=== PATIENT | male | born 1945 | race Caucasian/White ===

== ENCOUNTER 2017-10-29 20:18 | Observation (INO) | payer MEDICARE, OTHER ==
[~2017-10-29] VITALS: Ht 165.1 cm; Wt 85.0 kg
[~2017-10-29 20:18] MED LIST: CLIN150 PO; LORT5TAB PO
[2017-10-29 20:22] VITALS: BP 155/77; PULSE 78; RESP 18; TEMP 97.5; O2SAT 97
[2017-10-29] MEDS ORDERED: SODIUM CHLORIDE 0.9% FLUSH 10 ML FLUSH IVF PRN (21:15)
[2017-10-29] MEDS ORDERED: ASPIRIN 81 MG CHEW TAB CHEW ONE (21:15)
[2017-10-29] MEDS ORDERED: ASPIRIN 81 MG CHEW TAB PO ONE (21:15)
[2017-10-29 21:27] VITALS: RESP 18
[2017-10-29 21:29] LABS: AUTOMATED NEUTROPHIL # 4.7 TH/MM3 (1.8-7.7); BASOPHIL % 0.5 % (0.0-2.0); EOSINOPHIL # 0.1 TH/MM3 (0-0.4); EOSINOPHIL % 1.4 % (0.0-4.0); HEMATOCRIT 36.5 % (39.0-51.0); HEMOGLOBIN 12.4 GM/DL (13.0-17.0); LYMPH % 37.6 % (9.0-44.0); LYMPHOCYTE # 3.4 TH/MM3 (1.0-4.8); MEAN CELL VOLUME 87.7 FL (80.0-100.0); MEAN CORPUSCULAR HEMOGLOBIN 29.7 PG (27.0-34.0); MEAN CORPUSCULAR HGB CONC 33.9 % (32.0-36.0); MEAN PLATELET VOLUME 8.7 FL (7.0-11.0); MONO % 9.2 % (0.0-8.0); MONOCYTE # 0.8 TH/MM3 (0-0.9); NEUT % 51.3 % (16.0-70.0); PLATELET COUNT 263 TH/MM3 (150-450); RED BLOOD COUNT 4.16 MIL/MM3 (4.50-5.90); RED CELL DISTRIBUTION WIDTH 14.4 % (11.6-17.2); WHITE BLOOD COUNT 9.1 TH/MM3 (4.0-11.0)
[2017-10-29 21:36] LABS: PROTHROMBIN TIME - PATIENT 9.9 SEC (9.8-11.6)
[2017-10-29 21:50] LABS: ALT (GPT) 29 U/L (12-78)
[2017-10-29 22:06] LABS: ALBUMIN 3.6 GM/DL (3.4-5.0); ALKALINE PHOSPHATASE 79 U/L (45-117); AST (GOT) 22 U/L (15-37); BICARBONATE 25.9 MEQ/L (21.0-32.0); BLOOD UREA NITROGEN 25 MG/DL (7-18); CALCIUM 8.8 MG/DL (8.5-10.1); CHLORIDE 104 MEQ/L (98-107); CREATININE 1.16 MG/DL (0.60-1.30); GLOMERULAR FILTRATION RATE 62 ML/MIN (>89); GLUCOSE,RANDOM 110 MG/DL (74-106); SODIUM (NA) 139 MEQ/L (136-145); TOTAL BILIRUBIN ADULT 0.3 MG/DL (0.2-1.0); TROPONIN I LESS THAN 0.02 NG/ML (0.02-0.05)
--- NOTE | 2017-10-29 22:18 | PD ---
HPI Chief Complaint: Chest Pain Time Seen by Provider: 20:27 Travel History International Travel<30 days: No Contact w/Intl Traveler<30days: No Traveled to known affect area: No History of Present Illness HPI Patient is a 71 year old, primarily Cameroonian speaking male, who comes in complaining of chest pain. History obtained through Cameroonian assistant cook. Patient states he has been getting chest pain whenever he exerts himself, especially when he walks upstairs. It improves with rest. He says the pain is on the left side of his chest and lasts about 10-12 minutes. He says he is depressed and is very nervous about his heart. He denies shortness of breath or nausea or vomiting. He says he has not had any problems with his heart in the past. Severity is mild to moderate. [facility] Past Medical History Immunizations Current: Yes Tetanus Vaccination: Unknown Influenza Vaccination: No Social History Alcohol Use: No Tobacco Use: No Substance Use: No Allergies-Medications (Allergen,Severity, Reaction): Coded Allergies: No Known Allergies (Unverified Adverse Reaction, Unknown, 10/29/17) Reported Meds & Prescriptions Reported Meds & Active Scripts Active No Active Prescriptions or Reported Medications Review of Systems Except as stated in HPI: all other systems reviewed are Neg General / Constitutional: No: Fever, Chills HENT: No: Headaches, Lightheadedness Cardiovascular: Positive: Chest Pain or Discomfort Respiratory: No: Shortness of Breath Gastrointestinal: No: Nausea, Vomiting Musculoskeletal: No: Myalgias, Edema Skin: No Rash, No Change in Pigmentation Neurologic: No: Weakness, Dizziness Psychiatric: Positive: Depression Physical Exam Narrative GENERAL: Awake and alert, in no acute distress. SKIN: Focused skin assessment warm/dry. HEAD: Atraumatic. Normocephalic. EYES: Pupils equal and round. No scleral icterus. No injection or drainage. ENT: No nasal bleeding or discharge. Mucous membranes pink and moist. NECK: Trachea midline. No JVD. CARDIOVASCULAR: Regular rate and rhythm. No murmur appreciated. RESPIRATORY: No accessory muscle use. Clear to auscultation. Breath sounds equal bilaterally. GASTROINTESTINAL: Abdomen soft, non-tender, nondistended. MUSCULOSKELETAL: No obvious deformities. No clubbing. No cyanosis. No edema. NEUROLOGICAL: Awake and alert. No obvious cranial nerve deficits. Motor grossly within normal limits. Normal speech. PSYCHIATRIC: Appropriate mood and affect; insight and judgment normal. Data Data Last Documented VS Vital Signs Date Time Temp Pulse Resp B/P (MAP) Pulse Ox O2 Delivery O2 Flow Rate FiO2 10/29/17 21:27 98 Room Air 10/29/17 21:27 18 10/29/17 20:22 97.5 78 Orders Orders Electrocardiogram (10/29/17 20:32) Ckmb (Isoenzyme) Profile (10/29/17 21:11) Complete Blood Count With Diff (10/29/17 21:11) Comprehensive Metabolic Panel (10/29/17 21:11) Prothrombin Time / Inr (Pt) (10/29/17 21:11) Act Partial Throm Time (Ptt) (10/29/17 21:11) Troponin I (10/29/17 21:11) Chest, Single Ap (10/29/17 21:11) Ecg Monitoring (10/29/17 21:11) Bilateral Bp Monitoring (10/29/17 21:11) Iv Access Insert/Monitor (10/29/17 21:11) Oximetry (10/29/17 21:11) Oxygen Administration (10/29/17 21:11) Aspirin Chew (Aspirin Chew) (10/29/17 21:15) Sodium Chloride 0.9% Flush (Ns Flush) (10/29/17 21:15) Aspirin Chew (Aspirin Chew) (10/29/17 21:15) CKMB (10/29/17 21:15) CKMB% (10/29/17 21:15) Activity Bed Rest With Brp (10/29/17 22:51) Vital Signs (Adult) Q4H (10/29/17 22:51) Cardiac Rhythm .As Directed (10/29/17 22:51) Notify Dr: Other .PRN (10/29/17 22:51) Notify Parameters (10/29/17 22:51) Resp Oxygen Nasal Cannula (10/29/17 ) Ckmb (Isoenzyme) Profile (10/30/17 00:15) Ckmb (Isoenzyme) Profile (10/30/17 03:15) Troponin I (10/30/17 00:15) Troponin I (10/30/17 03:15) Electrocardiogram (10/30/17 00:15) Electrocardiogram (10/30/17 03:15) ^ Obtain (10/29/17 22:51) Sodium Chloride 0.9% Flush (Ns Flush) (10/29/17 23:00) Sodium Chloride 0.9% Flush (Ns Flush) (10/30/17 09:00) Television Journalist / Telemetry AMY.[id number] (10/29/17 22:51) Admit Order (Ed Use Only) (10/29/17 ) CKMB (10/30/17 00:15) CKMB% (10/30/17 00:15) CKMB (10/30/17 03:10) CKMB% (10/30/17 03:10) Labs Laboratory Tests Test 10/29/17 21:15 White Blood Count 9.1 TH/MM3 Red Blood Count 4.16 MIL/MM3 Hemoglobin 12.4 GM/DL Hematocrit 36.5 % Mean Corpuscular Volume 87.7 FL Mean Corpuscular Hemoglobin 29.7 PG Mean Corpuscular Hemoglobin Concent 33.9 % Red Cell Distribution Width 14.4 % Platelet Count 263 TH/MM3 Mean Platelet Volume 8.7 FL Neutrophils (%) (Auto) 51.3 % Lymphocytes (%) (Auto) 37.6 % Monocytes (%) (Auto) 9.2 % Eosinophils (%) (Auto) 1.4 % Basophils (%) (Auto) 0.5 % Neutrophils # (Auto) 4.7 TH/MM3 Lymphocytes # (Auto) 3.4 TH/MM3 Monocytes # (Auto) 0.8 TH/MM3 Eosinophils # (Auto) 0.1 TH/MM3 Basophils # (Auto) 0.0 TH/MM3 CBC Comment DIFF FINAL Differential Comment Prothrombin Time 9.9 SEC Prothromb Time International Ratio 1.0 RATIO Activated Partial Thromboplast Time 26.2 SEC Blood Urea Nitrogen 25 MG/DL Creatinine 1.16 MG/DL Random Glucose 110 MG/DL Total Protein 8.0 GM/DL Albumin 3.6 GM/DL Calcium Level 8.8 MG/DL Alkaline Phosphatase 79 U/L Aspartate Amino Transf (AST/SGOT) 22 U/L Alanine Aminotransferase (ALT/SGPT) 29 U/L Total Bilirubin 0.3 MG/DL Sodium Level 139 MEQ/L Potassium Level 3.8 MEQ/L Chloride Level 104 MEQ/L Carbon Dioxide Level 25.9 MEQ/L Anion Gap 9 MEQ/L Estimat Glomerular Filtration Rate 62 ML/MIN Total Creatine Kinase 190 U/L Creatine Kinase MB 1.8 NG/ML Troponin I LESS THAN 0.02 NG/ML MDM Medical Decision Making Medical Screen Exam Complete: Yes Emergency Medical Condition: Yes Medical Record Reviewed: Yes Interpretation(s) ECG shows NSR at a rate of 76, no ST elevation or depression Differential Diagnosis ACS vs NSTEMI vs STEMI Narrative Course Patient is a 71 year old male who comes in complaining of chest pain worse on exertion. Exam shows no acute abnormalities. IV established, labs sent. Patient connected to the youth nutritional monitor. Given Aspirin. Troponin is negative. CXR shows no acute abnormalities. Last 24 hours Impressions Chest X-Ray 10/29/172110 Signed Impressions: CONCLUSION: Minimal basilar atelectasis. No consolidation or significant effusion. Patient will be placed in chest pain center for further management. Diagnosis Primary Impression: Chest pain Qualified Codes: R07.9 - Chest pain, unspecified Admitting Information Admitting Physician Requests: Observation Scripts No Active Prescriptions or Reported Meds Kim Kebede MD Oct 29, 2017 22:18
--- NOTE | 2017-10-29 22:22 | RADRPT ---
EXAM DATE: 10/29/2017 9:58 PM EDT AGE/SEX: 71 years / Male INDICATIONS: Chest pain. CLINICAL DATA: This is the patient's initial encounter. Patient reports that signs and symptoms have been present for 1 day and indicates a pain score of 6/10. MEDICAL/SURGICAL HISTORY: None. None. COMPARISON: No prior exams available for comparison. FINDINGS: A single AP view of the chest demonstrates the lungs to be symmetrically aerated without evidence of mass, infiltrate or effusion. The cardiomediastinal contours are unremarkable. Osseous structures a re intact. CONCLUSION: Minimal basilar atelectasis. No consolidation or significant effusion. Electronically signed by: Mitch Carty MD 10/29/2017 10:20 PM EDT
[2017-10-29] MEDS ORDERED: IOHEXOL 350 MG/ML 50 ML BTL (for Cath Lab) OTHER ONE (22:55)
[2017-10-29] MEDS ORDERED: IOHEXOL 350 MG/ML 100 ML BTL (for Cath Lab) OTHER ONE (22:55)
[2017-10-29] MEDS ORDERED: SODIUM CHLORIDE 0.9% FLUSH 10 ML FLUSH IV FLUSH PRN (23:00)
[2017-10-30 00:33] VITALS: BP 138/72; PULSE 62; RESP 16; TEMP 97.9; O2SAT 97
[2017-10-30 01:04] LABS: TROPONIN I LESS THAN 0.02 NG/ML (0.02-0.05)
[2017-10-30 03:51] VITALS: BP 147/82; PULSE 62; RESP 16; TEMP 97.7; O2SAT 97
[2017-10-30 04:12] LABS: TROPONIN I LESS THAN 0.02 NG/ML (0.02-0.05)
[2017-10-30 07:06] VITALS: PULSE 79
--- NOTE | 2017-10-30 07:56 | HHI.HP ---
HPI Primary Care Physician Ene Snyder MD Chief Complaint Chest pain History of Present Illness 71-year-old male who denies any past medical history presents to ER for further evaluation of exertional chest pain. Onset 6 months. Location substernal. Characterized as pressure. No radiation. Duration varies. Associated symptoms dyspnea. Denies nausea or vomiting. Precipitating factors exertion. Relieving factors rest. States his web services professional is Dr. lopez and he recently chemical stress test 6 months ago reported to be normal. Due to communication barrier unsure reason patient decided to come to ER for further evaluation. Reports increasing fatigue over last couple of months. Currently is chest pain free and denies any further chest pain episodes since arriving to ER. Patient speaks Slovenian well, [place]an his first language. Review of Systems General: Increased fatigue last 2 months. No weakness, fever, chills, or recent illness. CV: As stated above, No further or current chest discomfort since arriving to ER. No known history of CAD or NE. RESP: No recent illness, cough, or wheezing. Exertional dyspnea resolves with rest. GI: No nausea, vomiting, or bowel changes. EXT: No lower leg edema MS: No discomfort or recent injury. NEURO: No dizziness, difficulty with balance, LOC, or motor/sensory deficits PSYCH: No anxiety or depression SKIN: No rashes, no concerning lesions Past Family Social History Allergies: Coded Allergies: No Known Allergies (Unverified Adverse Reaction, Unknown, 10/29/17) Past Medical History Denies any significant past medical history Reported Medications Reported Meds & Active Scripts Active None. States Dr. stein placed him on medication for a little while no longer requires. Does not recall name of medication or why he was prescribed medication. Active Ordered Medications Current Medications Medications (Trade) Dose Ordered Sig/Mary Route Start Time Stop Time Status Last Admin (NS Flush) 2 ml UNSCH PRN IVF 10/29/17 21:15 (NS Flush) 2 ml UNSCH PRN IV FLUSH 10/29/17 23:00 (NS Flush) 2 ml BID IV FLUSH 10/30/17 09:00 Social History No known coronary artery disease, hypertension, hyperlipidemia, or diabetes. Former smoker, quitting "long time ago." . Retired. Past cardiac testing Chemical stress testing less approx [address] Stein office. Reports test completely normal and scheduled for follow appointment on November 20. Physical Exam Vital Signs Vital Signs Date Time Temp Pulse Resp B/P (MAP) Pulse Ox O2 Delivery O2 Flow Rate FiO2 10/30/17 03:51 97.7 62 16 147/82 (103) 97 10/30/17 00:33 97.9 62 16 138/72 (94) 97 10/29/17 23:30 10/29/17 21:27 98 Room Air 10/29/17 21:27 18 10/29/17 20:22 97.5 78 18 155/77 (103) 97 Room Air Physical Exam GENERAL: Alert WN, WD, NAD, anxious, , elderly male HEAD: NC, AT CV: RRR, without murmur, rub, or gallop, no JVD, no S3-S4. RESP: Clear lungs throughout bilateral, no crackles, wheeze, rhonchi, symmetrical chest rise, nonlabored, able to speak in full sentences ABD: Soft, NT, ND, no masses, positive bowel tones EXT: Pulses +2x4, no dependent edema MS: Normal tone x4 extremities, no obvious deformities, full range of motion NEURO: CN II through CN XII grossly intact, motor strength 5/5 PSYCH: A+O x3, pleasant affect, agitated mood, appropriate speech, questionable insight and judgment, angry he can't eat SKIN: Normal turgor, normal texture Laboratory Laboratory Tests Test 10/29/17 21:15 10/30/17 00:15 10/30/17 03:10 White Blood Count 9.1 Red Blood Count 4.16 Hemoglobin 12.4 Hematocrit 36.5 Mean Corpuscular Volume 87.7 Mean Corpuscular Hemoglobin 29.7 Mean Corpuscular Hemoglobin Concent 33.9 Red Cell Distribution Width 14.4 Platelet Count 263 Mean Platelet Volume 8.7 Neutrophils (%) (Auto) 51.3 Lymphocytes (%) (Auto) 37.6 Monocytes (%) (Auto) 9.2 Eosinophils (%) (Auto) 1.4 Basophils (%) (Auto) 0.5 Neutrophils # (Auto) 4.7 Lymphocytes # (Auto) 3.4 Monocytes # (Auto) 0.8 Eosinophils # (Auto) 0.1 Basophils # (Auto) 0.0 CBC Comment DIFF FINAL Differential Comment Prothrombin Time 9.9 Prothromb Time International Ratio 1.0 Activated Partial Thromboplast Time 26.2 Blood Urea Nitrogen 25 Creatinine 1.16 Random Glucose 110 Total Protein 8.0 Albumin 3.6 Calcium Level 8.8 Alkaline Phosphatase 79 Aspartate Amino Transf (AST/SGOT) 22 Alanine Aminotransferase (ALT/SGPT) 29 Total Bilirubin 0.3 Sodium Level 139 Potassium Level 3.8 Chloride Level 104 Carbon Dioxide Level 25.9 Anion Gap 9 Estimat Glomerular Filtration Rate 62 Total Creatine Kinase 190 160 222 Creatine Kinase MB 1.8 1.9 1.9 Troponin I LESS THAN 0.02 LESS THAN 0.02 LESS THAN 0.02 Result Diagram: 10/29/17211410/29/172114 Imaging Last 48 hours Impressions Chest X-Ray 10/29/172110 Signed Impressions: CONCLUSION: Minimal basilar atelectasis. No consolidation or significant effusion. Course EKG NSR, normal axis, no ST-T segment changes Caprini VTE Risk Assessment Caprini VTE Risk Assessment: Mod/High Risk (score >= 2) Caprini Risk Assessment Model Point Value = 1 Point Value = 2 Point Value = 3 Point Value = 5 Age 41-60 Minor surgery BMI > 25 kg/m2 Swollen legs Varicose veins or History of unexplained or recurrent spontaneous Oral contraceptives or hormone replacement Sepsis (< 1 month) Serious lung disease, including pneumonia (< 1 month) Abnormal pulmonary function Acute myocardial infarction Congestive heart failure (< 1 month) History of inflammatory bowel disease Medical patient at bed rest Age 61-74 Arthroscopic surgery Major open surgery (> 45 min) Laparoscopic surgery (> 45 min) Malignancy Confined to bed (> 72 hours) Immobilizing plaster cast Central venous access Age >= 75 History of VTE Family history of VTE Factor V Leiden Prothrombin [id number] Lupus anticoagulant Anticardiolipin antibodies Elevated serum homocysteine Heparin-induced thrombocytopenia Other congenital or acquired thrombophilia Stroke (< 1 month) Elective arthroplasty Hip, pelvis, or leg fracture Acute spinal cord injury (< 1 month) Prophylaxis Regimen Total Risk Factor Score Risk Level Prophylaxis Regimen 0-1 Low Early ambulation 2 Moderate Order ONE of the following: *Sequential Compression Device (SCD) *Heparin 5000 units SQ BID 3-4 Higher Order ONE of the following medications: *Heparin 5000 units SQ TID *Enoxaparin/Lovenox 40 mg SQ daily (WT < 150 kg, CrCl > 30 mL/min) *Enoxaparin/Lovenox 30 mg SQ daily (WT < 150 kg, CrCl > 10-29 mL/min) *Enoxaparin/Lovenox 30 mg SQ BID (WT < 150 kg, CrCl > 30 mL/min) AND/OR *Sequential Compression Device (SCD) 5 or more Highest Order ONE of the following medications: *Heparin 5000 units SQ TID (Preferred with Epidurals) *Enoxaparin/Lovenox 40 mg SQ daily (WT < 150 kg, CrCl > 30 mL/min) *Enoxaparin/Lovenox 30 mg SQ daily (WT < 150 kg, CrCl > 10-29 mL/min) *Enoxaparin/Lovenox 30 mg SQ BID (WT < 150 kg, CrCl > 30 mL/min) AND *Sequential Compression Device (SCD) Assessment and Plan Assessment and Plan Admitted to chest pain center. ACS ruled out with 3 sets of EKGs and cardiac enzymes. Symptoms concerning for unstable angina. Dr. Campa called and spoke with Dr Stein to make aware of patient's admission to [facility] and presenting symptoms. Consult for Dr. Stein placed and MD will assess patient later this today for possible cardiac catheterization. Keep NPO at this time. Discussed plan of care with patient. Patient agitated, demanding a time Dr. Stein will arrive, stating he feels better and prefers to go home. Dr. Campa spoke with patient importance of waiting for Dr. Stein, patient agreeable to wait for Dr. Stein at this time. Discussed plan of care with CARLENE. Latrice Philippe Oct 30, 2017 07:56
[2017-10-30 08:48] VITALS: BP 133/80; PULSE 67; RESP 18; TEMP 97.6; O2SAT 95
[2017-10-30] MEDS ORDERED: SODIUM CHLORIDE 0.9% FLUSH 10 ML FLUSH IV FLUSH SCH (09:00)
[2017-10-30] MEDS ORDERED: MIDAZOLAM HCL 5 MG/5 ML VIAL ONE (13:15)
[2017-10-30] MEDS ORDERED: HEPARIN-NS/PF INJ 1,000 ML ONE (13:15)
[2017-10-30] MEDS ORDERED: NITROGLYCERIN INJ 5 ML ONE (13:27)
--- NOTE | 2017-10-30 14:10 | CATHPROC ---
[employer] HIS Report Study Information Study Number Admission Scheduled Start Study Start [id number] Oct 29 2017 10:54PM 10/30/2017 Oct 30 2017 1:17PM [place] Service Cardiac Catheterization Admit Source Facility Department Emergency department [facility] - Supervisor Border Department Physician and Clinical Staff Initial Lalita Harrison Division Engineer Jeffry Man,CARLENE Other Siva CONCEPCION, Valdemar Recorder Lexx Nails RCIS(BS) Scrub Cele Emerson RCIS TECH2 Procedures Performed Procedure Location (Site) Vessel Name Angiogram LV LV Ventricle Coronary Angiograms LCA Left Coronary Coronary Angiograms RCA Right Coronary L Heart Cath Equipment Time Light Industrial Description Size Mfg Part Number Used/Scraped TRANSDUCER, TRUWAVE [id number] 13:18 MEDINA BROOKS * Used W/STOCKCOCK *[id number] [id number] 13:59 CARDIVA MEDICAL VASCADE, FR5 CLOSURE SYSTEM FR 5 Used *[id number] [id number] 14:00 CARDIVA MEDICAL VASCADE, FR5 CLOSURE SYSTEM FR 5 Used *[id number] [id number] *[id number] [id number] *[id number] 13:18 Pixeon BLANKET,WARM AIR CCL * Used *[id number] 13:18 [employer]eon PACK, CCL CUSTOM * Used *[id number] 13:18 [employer] PACER PEN, SKIN DUAL W/ RULER * Used *[id number] PIG ANG 145 DXTERITY [id number] 13:46 MEDTRONIC FR 5 Used CATHETER *[id number] 13:18 TVAX Biomedical WIRE, 3MMJ .035 180CM 180CM Used *[id number] PROBE COVER, STERILE [id number] 13:18 Ineda Systems * Used ULTRASOUND W/ GEL *[id number] 13:18 NAMIC MANIFOLD, 4 PORT * Used *[id number] 13:18 NAMIC TUBING, HIGH PRESSURE 48" 48" Used *[id number] TUBING, PRESSURE INJECTION [id number] 13:37 NAMIC 72" Used 72" *[id number] 13:18 NYCOMED OMNIPAQUE, 350 MG, 150ML 150ML [id number] Used 13:48 NYCOMED OMNIPAQUE, 350 MG, 50ML 50ML [id number] Used [id number] 13:18 TERUMO MEDICAL SHEATH, FR5 TERUMO (10CM) FR 5 Used *[id number] Equipment Model, Serial, Lot Number and Expiration Data Description Model Number Serial Number Lot Number Expiration Date JOCELYNE BAÑUELOS 145 DXTERITY CATHETER [id number] 06-21-2019 History: Current Medications Medication Dosage/Unit Route Frequency Last Date/Time Taken ASA History: Risk Factors Family History of Hypertension Dyslipidemia Previous UT Previous Heart Failure Premature CAD No No No No No Prior Valve Prior PCI Prior CABG Surgery No No No Cerebrovascular Peripheral Artery Chronic Lung On Dialysis Diabetes Disease Disease Disease No No No No No History: Symptoms/Diagnosis Selection Items Chest pain History: Stress Tests Stress or Imaging Studies Performed No History: Other Current Smoker No Labs Hgb (g/dl) Hct (%) WBC (l/cumm) Platelets (thousands) 11.60-17.00 35.00-51.00 4.00-11.00 150.00-450.00 12.4 36.5 9.1 263 Glucose (mg/dl) BUN (mg/dl) Creatinine (mg/dl) BUN:Creatinine (1:x) 74.00-106.00 7.00-18.00 0.50-1.30 10.00-20.00 110 25 1.1 22.7 Na (meq/l) K (meq/l) 136.00-145.00 3.50-5.10 139 3.8 INR (PTT:PT) 0.90-1.10 1 Troponin I (ng/ml) CPK (u/l) CPK-MB (ng/ML) 0.02-0.05 26.00-308.00 0.50-3.60 0.02 190 1.9 Medication Medication Total Dose (Bolus/Oral) Medication Total Dosage/Unit 1% XYLOCAINE 20 mL FENTANYL 50 mcg VERSED 4 mg Medications (Bolus/Oral) Medication Time Given Dosage/Unit Administered By Reason VERSED 10/30/2017 1:29:38 PM 2 mg Magda, Jeffry 2 mg VERSED given in lab by Jeffry Man RN in Right Hand via Peripheral IV. Ordered by Goldy Stein. FENTANYL 10/30/2017 1:29:54 PM 50 mcg Magda, Jeffry 50 mcg FENTANYL given in lab by Jeffry Man RN in Right Hand via Peripheral IV. Ordered by Lalita Stein. VERSED 10/30/2017 1:38:44 PM 1 mg Magda, Jeffry 1 mg VERSED given in lab by Jeffry Man RN in Right Hand via Peripheral IV. Ordered by Goldy Stein. 1% XYLOCAINE 10/30/2017 1:43:14 PM 20 mL Lalita Stein 20 mL 1% XYLOCAINE given in lab by Lalita Stein in Right Groin via Subcutaneous. Ordered by Lalita Watson. VERSED 10/30/2017 1:44:23 PM 1 mg Magda, Jeffry 1 mg VERSED given in lab by Jeffry Man RN in Right Hand via Peripheral IV. Ordered by Goldy Stein. Medication (Drip) Medication Time Given Dosage/Unit Concentration/Unit Diluent (ml) Solution IV Solutions 10/30/2017 1:17:08 PM 0 mL (IV) 500 NaCl .9 Patient arrived on IV Solutions in Right Hand via Peripheral IV. Pump/Drip Flow = 20 ml/hr using NaCl .9. Ordered by Lalita Stein. Initial Case Assessment Cardiovascular HR Rhythm NIBP Chest Pain 65 nsr 156/94 0 Edema Present Skin color Skin None Normal Warm Dry Circulatory - Right Pulses Dorsalis Pedis Femoral 3 3 Scale (0,1,2,3,4,d) Circulatory - Left Pulses Dorsalis Pedis Femoral 3 3 Scale (0,1,2,3,4,d) Neurological State Oriented to time-place- Alert Moves all extremities person Respiration - General Respiration Rate SpO2 (%) (B/min) 15 98 Final Case Assessment Cardiovascular HR Rhythm NIBP Chest Pain 65 nsr 156/94 0 Edema Present Skin color Skin None Normal Warm Dry Circulatory - Right Pulses Dorsalis Pedis Femoral 3 3 Scale (0,1,2,3,4,d) Circulatory - Left Pulses Dorsalis Pedis Femoral 3 3 Scale (0,1,2,3,4,d) Neurological State Oriented to time-place- Alert Moves all extremities person Respiration - General Respiration Rate SpO2 (%) (B/min) 15 98 Chronological Log Time Study Chronological Log 13:16:59 Patient arrived via Bed. 13:16:59 Patient Name, D.O.B, / Armband Verified By R.N. 13:17:00 Consent signed by the physician and the patient and verified by the Supervisor Border Department staff. 13:17:00 Pre-op and post- op instructions given; patient acknowledges understanding of instructions. 13:17:01 Verbal Stimulation=2 Physical Stimulation=2 Airway=2 Respiration=2 TOTAL=8. (0=absent, 1=li mited, 2=present) 13:17:02 Presedation assessment performed by Supervisor Border Department RN. 13:17:03 Immediate Presedation assesment performed by physician. 13:17:04 Patient has been NPO for More than 6Hrs. 13:17:04 Skin Breakdown- none per patient 13:17:05 Patient Warmer Placed on the Table. 13:17:05 Ruth Prominences Protected 13:17:08 A # 20 IV was noted in the Hand (right). Grade = 0 Patient arrived on IV Solutions in Right Hand via Peripheral IV. Pump/Drip Flow = 20 ml/hr usin g NaCl .9. Ordered by 13:17:08 Lalita Stein. 13:17:09 History and physical on the chart or being dictated. 13:20:54 MD arrived. Vitals capture started with the following parameters, Patient=Adult, Interval=5 min, Initial Pr xmdefz=594 mmHg, 13:21:02 Deflation Rate=5 mmHg, Cuff placed on Left Arm 13:21:40 HR=65 bpm, NGUZ=680/94 mmhg, SpO2=97.0 %, Resp=17 B/min, Pain=0, Karl=10, García=2 Assessment: Initial Case, HR=65 BPM, Rhythm=nsr, HXVF=960/94 mmhg, Chest Pain=0, Edema=None, Co yojana=Normal, Skin = Warm, Dry Right Pulses: Walter Ped=3, Femoral=3 13:25:50 Left Pulses: Walter Ped=3, Femoral=3 Neurological: State=Alert, Ox3, GOODSON Respiration: Resp=15 B/min, SpO2=98 % 13:27:03 Contrast Scanned 13:27:05 Immediate Presedation assesment performed by physician. 13:28:04 Bilateral groins prepped with 2% chlorhexidine, and draped after a 3 minute waiting time. 13:28:11 HR=64 bpm, FEJR=934/94 mmhg, SpO2=98.0 %, Resp=14 B/min, Pain=0, Karl=10, García=2 13:29:38 2 mg VERSED given in lab by Jeffry Man RN in Right Hand via Peripheral IV. Ordered by Lalita Brown. 13:29:54 50 mcg FENTANYL given in lab by Jeffry Man RN in Right Hand via Peripheral IV. Ordered b y Lalita Stein. 13:31:42 HR=78 bpm, LNNG=977/96 mmhg, SpO2=98.0 %, Resp=10 B/min, Pain=0, Karl=10, García=2 13:32:21 Reference ECG taken 13:36:45 HR=64 bpm, OGZR=468/87 mmhg, SpO2=96.0 %, Resp=7 B/min, Pain=0, Karl=10, García=2 13:38:44 1 mg VERSED given in lab by Jeffry Man RN in Right Hand via Peripheral IV. Ordered by Lalita Brown. 13:39:29 Pressure channel 1 zeroed. 13:41:42 HR=59 bpm, NOCE=825/81 mmhg, SpO2=95 %, Resp=10 B/min, Pain=0, Karl=10, García=2 Time Out. Correct patient, correct procedure, correct physician, labs, allergies, and equipment verified with orthodontic laboratory technician 13:42:08 team present. Fire risk assesment completed (see hard stop sheet for coding). Time Out Conc urred by MD and individual staff in procedure. 13:43:11 Case Start 13:43:14 20 mL 1% XYLOCAINE given in lab by Lalita Stein in Right Groin via Subcutaneous. Ordered by Lalita Stein. 13:43:20 Verbal Stimulation=2 Physical Stimulation=2 Airway=2 Respiration=2 TOTAL=8. (0=absent, 1=li mited, 2=present) 13:44:23 1 mg VERSED given in lab by Jeffry Man RN in Right Hand via Peripheral IV. Ordered by Lalita Brown. 13:45:32 Access site was Right Femoral Artery. 13:45:36 A SHEATH, FR5 TERUMO (10CM) FR 5 was advanced into the Fem Art (right) using the [place] us technique. 13:45:49 A PIG ANG 145 DXTERITY CATHETER FR 5 was advanced over a wire. contrast was used for inject ions. 13:46:43 HR=64 bpm, YWMT=560/83 mmhg, SpO2=94.0 %, Resp=9 B/min, Pain=0, Karl=10, García=2 Recorded Pressure: LV, HR=68, Condition=Condition 1 13:47:41 (Left Ventricle) LV 133/5/8 13:47:57 The LV was injected at 10 cc/sec for a total of 30. OMNIPAQUE, 350 MG, 50ML 50ML used. Recorded Pressure: LV, Ao, HR=65, Condition=Condition 1 13:49:05 (Left Ventricle) LV 129/7/10, (Aorta) Ao 124/65/89 13:49:38 Catheter was removed A JL 4.0 INFINITI CATHETER FR 5 was advanced over a wire. OMNIPAQUE, 350 MG, 150ML 150ML was us ed for 13:49:40 injections. Recorded Pressure: Ao, HR=61, Condition=Condition 1 13:50:56 (Aorta) Ao 119/66/87 13:51:20 The LCA was injected and visualized at various angles. OMNIPAQUE, 350 MG, 150ML 150ML used . 13:51:42 HR=65 bpm, YZXT=550/80 mmhg, SpO2=95.0 %, Resp=11 B/min, Pain=0, Karl=10, García=2 13:52:39 Catheter was removed A AR MOD INFINITI CATHETER FR 5 was advanced over a wire. OMNIPAQUE, 350 MG, 150ML 150ML was us ed for 13:52:40 injections. 13:54:34 The RCA was injected and visualized at various angles. OMNIPAQUE, 350 MG, 150ML 150ML used . 13:55:00 Catheter was removed 13:55:03 Case End (Physician broke scrub) 13:55:14 An injection in the Fem Art (right) was made through the SHEATH, FR5 TERUMO (10CM) FR 5. 13:57:18 HR=67 bpm, IZNC=414/91 mmhg, SpO2=95.0 %, Resp=11 B/min, Pain=0, Karl=10, García=2 13:59:09 VASCADE, FR5 CLOSURE SYSTEM FR 5 placement in the Fem Art (right) 14:01:42 HR=62 bpm, SXUU=695/82 mmhg, SpO2=92.0 %, Resp=16 B/min, Pain=0, Karl=10, García=2 Assessment: Final Case, HR=65 BPM, Rhythm=nsr, ZLKQ=748/94 mmhg, Chest Pain=0, Edema=None, Col or=Normal, Skin = Warm, Dry Right Pulses: Walter Ped=3, Femoral=3 14:02:39 Left Pulses: Walter Ped=3, Femoral=3 Neurological: State=Alert, Ox3, GOODSON Respiration: Resp=15 B/min, SpO2=98 % 14:02:47 Catheter(s) removed without difficulty 14:02:48 Sterile dressing applied to site 14:02:49 No case complications noted. 14:02:49 Cine recording checked. 14:02:51 Bedside Report will be given. 14:02:52 Implantable Device card placed in patient's chart. 14:02:54 Verbal Stimulation=2 Physical Stimulation=2 Airway=2 Respiration=2 TOTAL=8. (0=absent, 1=l imited, 2=present) 14:02:59 A Left Heart Cath was performed. 14:06:44 HR=66 bpm, BLSB=639/91 mmhg, SpO2=91.0 %, Resp=12 B/min, Pain=0, Karl=10, García=2 14:09:21 Vitals capture stopped. 14:09:22 [facility] End Study - Contrast Media Used In Study Contrast Total Opened (mL) Total Used (mL) Total Wasted (mL) Omnipaque 105 105 0 End Study - Maximum Contrast Load Max Contrast Load (mL) 386.4 End Study - Radiation Exposure Fluoro Time (minutes) 1.8 End Study - Patient Disposition Complications Transferred To Interventional Outcome No Supervisor Border Department Holding No attempt made
--- NOTE | 2017-10-30 15:27 | EKG ---
Date Performed: 10/30/2017 Time Performed: 03:48:56 PTAGE: 71 years EKG: Sinus rhythm BORDERLINE ECG PREVIOUS TRACING : 10/30/2017 01.21 Since previous tracing, no significant change noted DOCTOR: Anderson Campa Interpretating Date/Time 10/30/2017 15:25:55
--- NOTE | 2017-10-30 15:28 | EKG ---
Date Performed: 10/30/2017 Time Performed: 01:21:01 PTAGE: 71 years EKG: Sinus rhythm NORMAL ECG PREVIOUS TRACING : 10/29/2017 20.32 Since previous tracing, no significant change noted DOCTOR: Anderson Campa Interpretating Date/Time 10/30/2017 15:27:04
--- NOTE | 2017-10-30 15:30 | EKG ---
Date Performed: 10/29/2017 Time Performed: 20:32:26 PTAGE: 71 years EKG: Sinus rhythm BORDERLINE ECG INTERPRETATION BASED ON A DEFAULT AGE OF 40 YEARS NO PREVIOUS TRACING DOCTOR: Anderson Campa Interpretating Date/Time 10/30/2017 15:28:06
--- NOTE | 2017-10-30 15:44 | MB ---
cc: Lalita Stein MD DATE: 10/30/2017 HISTORY OF PRESENT ILLNESS: A 71-year-old Peruvian speaking white male with a 6-month history of substernal chest discomfort, which has increased recently. It occurs with exertion and is relieved with rest. He has not had shortness of breath. He had a stress test 6 months ago which was unremarkable. His symptoms have worsened over the last several weeks. PAST MEDICAL HISTORY: Negative for hypertension. No history of diabetes mellitus, coronary artery disease, or CVA. MEDICATIONS: Flomax. ALLERGIES: NONE. SOCIAL HISTORY: The patient does not smoke or drink alcohol. FAMILY HISTORY: Negative for heart disease. REVIEW OF SYSTEMS: Otherwise negative. PHYSICAL EXAMINATION: VITAL SIGNS: Blood pressure 133/80, pulse 67 and regular. HEENT: Negative. 2+ carotid upstrokes, no bruits. LUNGS: Clear. HEART: Regular with no murmur, gallop or rub. ABDOMEN: Soft. No bruits. EXTREMITIES: Without edema. 2+ distal pulses. NEUROLOGIC: Exam grossly nonfocal. EKG The EKG was reviewed and showed normal sinus rhythm and inferolateral Q-waves. LABORATORY DATA: Hemoglobin 12.4. Potassium 3.8, creatinine 1.2. Troponin negative x3. DIAGNOSES: 1. Unstable angina. 2. Abnormal EKG. 3. Remote history of smoking. DISPOSITION: Mr. Dumont will be scheduled for cardiac catheterization and coronary intervention if necessary. The patient and his understand the risks and benefits, and wish to proceed. Lalita Stein MD OAndrea/VICKIE , 02:04 PM , 03:42 PM ALESSIO
--- NOTE | 2017-10-30 15:55 | HHI.PR ---
Subjective Remarks Hospitalist service consulted. Patient underwent heart catheterization. He is seen after the heart cath. Discussed with RN, unremarkable cath. He reports he feels great. He denies any chest pain. He wants to go home. He has been cleared by cardiology for discharge Objective Vitals Vital Signs Date Time Temp Pulse Resp B/P (MAP) Pulse Ox O2 Delivery O2 Flow Rate FiO2 10/30/17 14:25 99 Room Air 10/30/17 08:48 97.6 67 18 133/80 (97) 95 10/30/17 07:06 79 10/30/17 03:51 97.7 62 16 147/82 (103) 97 10/30/17 00:33 97.9 62 16 138/72 (94) 97 10/29/17 23:30 10/29/17 21:27 98 Room Air 10/29/17 21:27 18 10/29/17 20:22 97.5 78 18 155/77 (103) 97 Room Air Result Diagram: 10/29/17211410/29/172114 Objective Remarks GENERAL: This is a well-nourished, well-developed patient, in no apparent distress. CARDIOVASCULAR: Normal rate and regular rhythm without murmurs, gallops, or rubs. RESPIRATORY: Good respiratory efforts. Breath sounds equal and clear to auscultation bilaterally. GASTROINTESTINAL: Abdomen soft, non-tender, non-distended. Normal active bowel sounds MUSCULOSKELETAL: Extremities without cyanosis, or edema. NEURO: Alert & Oriented x4 to person, place, time, situation. Moves all ext x4 PSYCH: Appropriate mood and affect. A/P Problem List: (1) Chest pain ICD Code: R07.9 - Chest pain, unspecified Plan: Patient initially admitted to the chest pain center for chest pain with exertion. He was seen by cardiology and underwent heart catheterization due to persistence of his symptoms over the past 6 months. Heart catheterization unremarkable. Patient's symptoms resolved. He is cleared for discharge by cardiology. Patient is discharged home in good condition. Juan Antonio Page MD Oct 30, 2017 15:55
--- NOTE | 2017-10-30 16:12 | MA ---
cc: Lalita Stein MD DATE: 10/30/2017 INDICATION: Unstable angina, class 3, abnormal EKG. PROCEDURE PERFORMED: 1. Retrograde left heart catheterization with left ventriculography and selective coronary angiography. 2. Moderate sedation. ACCESS SITE: Right femoral artery. EQUIPMENT USED: 5-Bahamian pigtail catheter, 5-Bahamian JL4 and AR modified coronary artery catheters. MEDICATIONS: Versed IV, fentanyl IV. CONTRAST: Omnipaque 105 mL COMPLICATIONS: None. ESTIMATED BLOOD LOSS: Less than 10 mL METHOD OF HEMOSTASIS: VASCADE closure. RESULTS: HEMODYNAMICS: Heart rate 65 beats per minute. Left ventricular end diastolic pressure 7 mmHg. Left ventricle 125/7. Aorta 125/66/87. Left ventricular ejection fraction 60%. Wall motion normal. No mitral regurgitation. CORONARY ANGIOGRAPHY: The left main coronary artery patent. Left anterior descending artery patent. D1 patent. D2 patent. Left circumflex artery is patent. OM1 patent. OM2 patent. Ramus intermedius is a large vessel, which is patent. Right coronary artery is a dominant vessel, which is patent. PDA patent. PLV patent. DIAGNOSIS: 1. Widely patent coronary arteries. 2. Preserved left ventricular systolic function. DISPOSITION: Mr. Dumont can be reassured about his current cardiac status. His study revealed widely patent coronary arteries and preserved left ventricular systolic function. He will be discharged home later today. I will see him back for followup in our office after discharge. Lalita Stein MD OQ/TL , 02:10 PM , 04:10 PM MTDDickson
== END 2017-10-30 16:50 | disposition home or self-care (01) ==
LOC: NEPE 20:18 → NEDA 22:54 → NEPFCDU 23:55 → HCIS 10-30 13:01
PROVIDERS: ADMIT Family Medicine; ATTEND Family Medicine
DX: I20.0 Unstable angina (principal); R94.31 Abnormal electrocardiogram [ECG] [EKG]; Z87.891 Personal history of nicotine dependence; R06.00 Dyspnea, unspecified; R53.83 Other fatigue
CPT/HCPCS: 71045; 80053; 82550; 82552; 84484; 85025; 85610; 85730; 93005; 93458; 99285; C1760; C1769; C1893; G0269; G0378; J1644; J2250; J3010; Q9967